=== PATIENT | female | born 1985 | race Caucasian/White ===

== ENCOUNTER 2025-06-05 10:50 | Outpatient (CLI) | payer BC, SELFPAY | END 2025-06-05 10:51 | disposition home or self-care (01) | PROVIDERS: PCP Physician Assistant Medical; Visit Provider Physician Assistant Medical | DX: E28.2 Polycystic ovarian syndrome (principal); L70.0 Acne vulgaris; Z79.899 Other long term (current) drug therapy; Z79.85 Long-term (current) use of injectable non-insulin antidiabetic drugs | CPT/HCPCS: 80053; 80061; 84439; 84443 ==

== ENCOUNTER 2025-08-31 15:42 | Outpatient (CLI) | payer BC, SELFPAY | END 2025-08-31 15:43 | disposition home or self-care (01) | LOC: NFLDREF 09-04 15:47 | PROVIDERS: PCP Physician Assistant Medical; Referring Provider Physician Assistant Medical; Visit Provider Physician Assistant Medical | DX: E05.90 Thyrotoxicosis, unspecified without thyrotoxic crisis or storm (principal) | CPT/HCPCS: 84443 ==